=== PATIENT | female | born 1975 | race Caucasian/White ===

== ENCOUNTER 2018-10-15 22:21 | Emergency (ER) | payer MEDICAID ==
[~2018-10-15] VITALS: Ht 165.1 cm; Wt 53.2 kg
[~2018-10-15 22:21] MED LIST: BUSP10TA23 PO; NALT50TA6 PO; QUET100T33 PO
[2018-10-15 22:28] VITALS: BP 131/103
[2018-10-15] MEDS ORDERED: LORA1TAB3 PO (22:33)
== END 2018-10-15 23:52 | disposition left against medical advice (07) ==
LOC: EMS 22:22
DX: F41.9 Anxiety disorder, unspecified (principal); Z76.0 Encounter for issue of repeat prescription; Z53.21 Procedure and treatment not carried out due to patient leaving prior to being seen by health care provider

== ENCOUNTER 2018-11-21 06:15 | Emergency (ER) | payer MEDICAID ==
[~2018-11-21] VITALS: Ht 160 cm; Wt 54.5 kg
[~2018-11-21 06:15] MED LIST changes: +LORA1TAB3 PO; -NALT50TA6 PO
[2018-11-21 09:21] LABS: BASOPHILS % (AUTO) 0.8 % (0.0-2.0); EOSINOPHILS % (AUTO) 1.2 % (1.0-6.0); HEMATOCRIT 36.9 % (36-46); LYMPHOCYTES # (AUTO) 1.1 K/uL (1.0-4.8); LYMPHOCYTES % (AUTO) 18.1 % (22.0-44.0); MEAN CORPUSCULAR HEMOGLOBIN 28.1 pg (26.0-34.0); MEAN CORPUSCULAR HGB CONC 32.5 G/dL (31.0-37.0); MEAN CORPUSCULAR VOLUME 87 fL (80-100); MONOCYTES # (AUTO) 0.5 K/uL (0.1-1.0); MONOCYTES % (AUTO) 7.5 % (2.0-9.0); NEUTROPHILS # (AUTO) 4.6 K/uL (1.8-7.7); NEUTROPHILS % (AUTO) 72.4 % (40.0-70.0); PLATELET COUNT (AUTO) 325 K/uL (150-450); RED BLOOD CELL COUNT(AUTO) 4.26 MIL/uL (4.00-5.20)
[2018-11-21 09:34] LABS: ANION GAP 10 mmol/L (8-16); CALCIUM, TOTAL 8.6 mg/dL (8.8-10.5); CARBON DIOXIDE 25 mmol/L (22-29); CHLORIDE 104 mmol/L (98-107); CREATININE 0.86 mg/dL (0.60-1.30); GLOMERULAR FILTR. RATE CALC > 60 mL/min (>60); GLUCOSE,RANDOM 102 mg/dL (70-110); POTASSIUM 4.1 mmol/L (3.5-5.1); SODIUM SERUM 139 mmol/L (136-145); UREA NITROGEN, BLOOD 11 mg/dL (7-18)
[2018-11-21 09:41] LABS: ALANINE AMINOTRANSFERASE 21 U/L (12-78); ALBUMIN 3.6 g/dL (3.4-5.0); ALKALINE PHOSPHATASE 76 U/L (46-116); ASPARTATE AMINOTRANSFERASE 22 U/L (15-37); BILIRUBIN,TOTAL 0.3 mg/dL (0.1-1.0); TOTAL PROTEIN, SERUM 6.7 g/dL (6.4-8.2)
[2018-11-21 11:04] LABS: APPEARANCE,URINE CLOUDY (CLEAR); BILIRUBIN,URINE NEGATIVE (NEGATIVE); GLUCOSE, URINE (UA) NEGATIVE (NEGATIVE); KETONES,URINE NEGATIVE (NEGATIVE); LEUKOCYTE ESTERASE ,URINE LARGE (NEGATIVE); NITRATE,URINE POSITIVE (NEGATIVE); OCCULT BLOOD,URINE TRACE (NEGATIVE); PH,URINE 6.5 (5.0-8.0); PROTEIN,URINE NEGATIVE (NEGATIVE); UROBILINOGEN,URINE 0.2 mg/dL (<=1.0)
[2018-11-21 11:11] LABS: BACTERIA,URINE Many /HPF (None Seen); WBC,URINE >100 /HPF (0-5)
[2018-11-21] MEDS ORDERED: LORazepam 1 MG TABLET PO ONE (11:15)
[2018-11-21] MEDS ORDERED: QUET200T PO (11:16)
[2018-11-21 14:00] VITALS: BP 126/77
== END 2018-11-21 14:24 | disposition home or self-care (01) ==
LOC: EMS 06:15
DX: F41.9 Anxiety disorder, unspecified (principal)
CPT/HCPCS: 87086

== ENCOUNTER 2018-12-09 00:46 | Inpatient (IN) | payer MEDICAID ==
[~2018-12-09] VITALS: Ht 160 cm; Wt 54.4 kg
[~2018-12-09 00:46] MED LIST changes: +LORA-1000 PO; -LORA1TAB3 PO; -QUET100T33 PO; +QUET200T PO
[2018-12-09 03:32] LABS: AMPHET/METH SCREEN,URINE POSITIVE (NEGATIVE); BARBITURATE SCREEN, URINE NEGATIVE (NEGATIVE); BENZODIAZEPINES SCREEN,URINE NEGATIVE (NEGATIVE); CANNABINOID SCREEN,URINE NEGATIVE (NEGATIVE); COCAINE SCREEN,URINE NEGATIVE (NEGATIVE); METHADONE SCREEN, URINE NEGATIVE (NEGATIVE); OPIATE SCREEN,URINE NEGATIVE (NEGATIVE)
[2018-12-09 03:35] LABS: PHENCYCLIDINE SCREEN,URINE NEGATIVE (NEGATIVE)
[2018-12-09 03:43] LABS: BASOPHILS % (AUTO) 0.7 % (0.0-2.0); EOSINOPHILS % (AUTO) 0.3 % (1.0-6.0); HEMATOCRIT 36.1 % (36-46); HEMOGLOBIN 11.8 g/dL (12.0-16.0); LYMPHOCYTES # (AUTO) 1.2 K/uL (1.0-4.8); LYMPHOCYTES % (AUTO) 10.3 % (22.0-44.0); MEAN CORPUSCULAR HEMOGLOBIN 27.7 pg (26.0-34.0); MEAN CORPUSCULAR HGB CONC 32.7 G/dL (31.0-37.0); MEAN CORPUSCULAR VOLUME 85 fL (80-100); MONOCYTES # (AUTO) 0.7 K/uL (0.1-1.0); MONOCYTES % (AUTO) 5.9 % (2.0-9.0); NEUTROPHILS # (AUTO) 9.5 K/uL (1.8-7.7); NEUTROPHILS % (AUTO) 82.8 % (40.0-70.0); PLATELET COUNT (AUTO) 308 K/uL (150-450); RED BLOOD CELL COUNT(AUTO) 4.26 MIL/uL (4.00-5.20); RED CELL DISTRIBUTION WIDTH 14.9 % (11.5-14.5)
[2018-12-09 03:51] LABS: ANION GAP 7 mmol/L (8-16); CALCIUM, TOTAL 8.4 mg/dL (8.8-10.5); CARBON DIOXIDE 26 mmol/L (22-29); CHLORIDE 101 mmol/L (98-107); CREATININE 0.72 mg/dL (0.60-1.30); GLOMERULAR FILTR. RATE CALC > 60 mL/min (>60); GLUCOSE,RANDOM 115 mg/dL (70-110); POTASSIUM 4.2 mmol/L (3.5-5.1); SODIUM SERUM 134 mmol/L (136-145); UREA NITROGEN, BLOOD 7 mg/dL (7-18)
[2018-12-09 03:52] LABS: INR 0.9 (0.9-1.1); PROTHROMBIN TIME 9.5 SEC (9.4-11.6)
[2018-12-09 04:00] LABS: B-TYPE NATRIURETIC PEPTIDE 11 pg/mL (0-100)
[2018-12-09] MEDS ORDERED: ZOLPIDEM TARTRATE 10 MG TABLET PO PRN (04:00)
[2018-12-09] MEDS ORDERED: HALOPERIDOL 5 MG TABLET PO PRN (04:00)
[2018-12-09 04:15] LABS: ALANINE AMINOTRANSFERASE 12 U/L (12-78); ALBUMIN 3.4 g/dL (3.4-5.0); ALKALINE PHOSPHATASE 77 U/L (46-116); ASPARTATE AMINOTRANSFERASE 15 U/L (15-37); BILIRUBIN,TOTAL 0.2 mg/dL (0.1-1.0); CREATINE KINASE, TOTAL ONLY 77 U/L (26-192); TOTAL PROTEIN, SERUM 6.5 g/dL (6.4-8.2)
[2018-12-09] MEDS ORDERED: SODIUM CHLORIDE 0.9% 1,000 ML IV ONE ×2 (05:45→07:00)
[2018-12-09] MEDS ORDERED: IBUPROFEN 400 MG TABLET PO ONE (05:45)
[2018-12-09] MEDS ORDERED: CefTRIAXone 1 GM/DEXTROSE 50 ML IV ONE (06:00)
[2018-12-09] MEDS ORDERED: DOXYCYCLINE HYCLATE 100 MG CAPSULE PO ONE (06:00)
[2018-12-09 06:05] LABS: APPEARANCE,URINE CLEAR (CLEAR); BILIRUBIN,URINE NEGATIVE (NEGATIVE); GLUCOSE, URINE (UA) NEGATIVE (NEGATIVE); KETONES,URINE NEGATIVE (NEGATIVE); LEUKOCYTE ESTERASE ,URINE NEGATIVE (NEGATIVE); NITRATE,URINE NEGATIVE (NEGATIVE); OCCULT BLOOD,URINE NEGATIVE (NEGATIVE); PH,URINE 6.5 (5.0-8.0); PROTEIN,URINE NEGATIVE (NEGATIVE); UROBILINOGEN,URINE 0.2 mg/dL (<=1.0)
[2018-12-09] MEDS ORDERED: ACETAMINOPHEN 500 MG TABLET PO ONE (06:15)
[2018-12-09 07:18] LABS: LACTIC ACID 2.2 mmol/L (0.4-2.0)
[2018-12-09 07:39] LABS: INFLUENZA TYPE A NEGATIVE FOR TYPE A (NEGATIVE); INFLUENZA TYPE B NEGATIVE FOR TYPE B (NEGATIVE)
[2018-12-09] MEDS ORDERED: 0.9% SODIUM CHLORIDE 10 ML SYRINGE IVP PRN ×2 (08:15→10:00)
[2018-12-09] MEDS ORDERED: ACETAMINOPHEN 325 MG TABLET PO PRN (08:15)
[2018-12-09] MEDS ORDERED: BISACODYL 10 MG RECTAL RECTAL SUPPOSITORY PR PRN (10:00)
[2018-12-09] MEDS ORDERED: ONDANSETRON HCL 4 MG/2 ML VIAL IVP PRN (10:00)
[2018-12-09] MEDS ORDERED: LORazepam 2 MG/ML VIAL IVP PRN (10:00)
[2018-12-09] MEDS ORDERED: MAGNESIUM HYDROXIDE SUSPENSION 30 ML UDCUP PO PRN (10:00)
[2018-12-09] MEDS ORDERED: ALBUTEROL SULFATE 2.5 MG/0.5 ML NEB SOLUTION NEB PRN (10:00)
[2018-12-09] MEDS ORDERED: IPRATROPIUM BROMIDE 0.5 MG/2.5 ML NEB SOLUTION NEB PRN (10:00)
[2018-12-09 10:22] VITALS: BP 104/63
[2018-12-09] MEDS: FAMOTIDINE 20 MG TABLET PO SCH ×2 (13:01→22:22)
[2018-12-09] MEDS: SODIUM CHLORIDE 0.9% 1,000 ML IV SCH ×2 (13:01→22:22)
[2018-12-09] MEDS ORDERED: HYDR-4031 PO (15:12)
[2018-12-09 16:08] VITALS: BP 120/86
[2018-12-09] MEDS: LORazepam 2 MG TABLET PO PRN (17:57)
[2018-12-09 20:19] VITALS: BP 122/77
[2018-12-09] MEDS: DOXYCYCLINE HYCLATE 100 MG CAPSULE PO SCH (20:20)
[2018-12-10] VITALS (7 sets, daily range): BP systolic 111–138; BP diastolic 68–90
[2018-12-10] MEDS: LORazepam 2 MG TABLET PO PRN (05:55)
[2018-12-10 06:41] LABS: BASOPHILS % (AUTO) 0.4 % (0.0-2.0); EOSINOPHILS % (AUTO) 1.3 % (1.0-6.0); HEMATOCRIT 36.4 % (36-46); HEMOGLOBIN 11.8 g/dL (12.0-16.0); LYMPHOCYTES # (AUTO) 1.3 K/uL (1.0-4.8); LYMPHOCYTES % (AUTO) 10.8 % (22.0-44.0); MEAN CORPUSCULAR HEMOGLOBIN 27.8 pg (26.0-34.0); MEAN CORPUSCULAR HGB CONC 32.3 G/dL (31.0-37.0); MEAN CORPUSCULAR VOLUME 86 fL (80-100); MONOCYTES # (AUTO) 0.8 K/uL (0.1-1.0); MONOCYTES % (AUTO) 6.3 % (2.0-9.0); NEUTROPHILS # (AUTO) 9.8 K/uL (1.8-7.7); NEUTROPHILS % (AUTO) 81.2 % (40.0-70.0); PLATELET COUNT (AUTO) 257 K/uL (150-450); RED BLOOD CELL COUNT(AUTO) 4.23 MIL/uL (4.00-5.20); RED CELL DISTRIBUTION WIDTH 15.3 % (11.5-14.5)
[2018-12-10 07:05] LABS: ALANINE AMINOTRANSFERASE 16 U/L (12-78); ALKALINE PHOSPHATASE 71 U/L (46-116); ANION GAP 10 mmol/L (8-16); ASPARTATE AMINOTRANSFERASE 21 U/L (15-37); BILIRUBIN,TOTAL 0.2 mg/dL (0.1-1.0); CALCIUM, TOTAL 8.2 mg/dL (8.8-10.5); CARBON DIOXIDE 21 mmol/L (22-29); CHLORIDE 101 mmol/L (98-107); CHOL/HDL RATIO 1.7 (3.9-5.7); CHOLESTEROL 118 mg/dL (131-200); CREATININE 0.54 mg/dL (0.60-1.30); GLOMERULAR FILTR. RATE CALC > 60 mL/min (>60); GLUCOSE,RANDOM 108 mg/dL (70-110); HDL CHOLESTEROL 70 mg/dL (40-60); LDL CHOL (CALC.) 41 mg/dL (0-130); POTASSIUM 4.2 mmol/L (3.5-5.1); SODIUM SERUM 132 mmol/L (136-145); TRIGLYCERIDES 34 mg/dL (15-150)
[2018-12-10 07:12] LABS: UREA NITROGEN, BLOOD 5 mg/dL (7-18)
[2018-12-10] MEDS: DOXYCYCLINE HYCLATE 100 MG CAPSULE PO SCH ×2 (08:01→21:08)
[2018-12-10] MEDS: SODIUM CHLORIDE 0.9% 1,000 ML IV SCH ×2 (08:01→16:29)
[2018-12-10] MEDS: CefTRIAXone 1 GM/DEXTROSE 50 ML IV SCH (08:07)
[2018-12-10] MEDS: FAMOTIDINE 20 MG TABLET PO SCH ×2 (10:30→21:08)
[2018-12-10] MEDS: GuaiFENesin/D-METHORPHAN [SUGAR-FREE] 200-20MG/10 ML SYRUP UDCUP PO PRN (21:08)
[2018-12-10] MEDS: ACETAMINOPHEN 325 MG TABLET PO PRN (21:08)
[2018-12-11] MEDS: SODIUM CHLORIDE 0.9% 1,000 ML IV SCH ×2 (02:24→10:58)
[2018-12-11] MEDS: ACETAMINOPHEN 325 MG TABLET PO PRN (05:54)
[2018-12-11 05:58] VITALS: BP 123/86
[2018-12-11 07:34] VITALS: BP 109/74
[2018-12-11] MEDS: FAMOTIDINE 20 MG TABLET PO SCH (08:48)
[2018-12-11] MEDS: GuaiFENesin/D-METHORPHAN [SUGAR-FREE] 200-20MG/10 ML SYRUP UDCUP PO PRN (08:48)
[2018-12-11] MEDS: CefTRIAXone 1 GM/DEXTROSE 50 ML IV SCH (08:48)
[2018-12-11] MEDS: DOXYCYCLINE HYCLATE 100 MG CAPSULE PO SCH (08:48)
[2018-12-11] MEDS: LORazepam 2 MG TABLET PO PRN (08:53)
[2018-12-11 12:01] VITALS: BP 104/72
[2018-12-11 15:14] VITALS: BP 117/77
[2018-12-11] MEDS ORDERED: DOXY150T5 PO (16:47)
[2018-12-11] MEDS ORDERED: DOXY100C PO (16:52)
[2018-12-11] MEDS ORDERED: ALBU8HFA IH (16:53)
== END 2018-12-11 17:05 | disposition home or self-care (01) | DRG 145 ==
LOC: EMS 00:46 → 5S 08:35
PROVIDERS: ADMIT Internal Medicine; ATTEND Internal Medicine
DX: J20.9 Acute bronchitis, unspecified (principal); E87.2 Acidosis; R45.851 Suicidal ideations; R65.10 Systemic inflammatory response syndrome (SIRS) of non-infectious origin without acute organ dysfunction; F25.9 Schizoaffective disorder, unspecified; F31.9 Bipolar disorder, unspecified; F17.210 Nicotine dependence, cigarettes, uncomplicated; F12.90 Cannabis use, unspecified, uncomplicated; F15.10 Other stimulant abuse, uncomplicated; F19.129 Other psychoactive substance abuse with intoxication, unspecified
CPT/HCPCS: 83605; 84145; 87040; 87070; 87205; 87804; 93005; G0480; J0696; J7030

== ENCOUNTER 2018-12-12 15:50 | Emergency (ER) | payer MEDICAID ==
[~2018-12-12] VITALS: Ht 165.1 cm; Wt 59.1 kg
[~2018-12-12 15:50] MED LIST changes: +ALBU8HFA IH; -BUSP10TA23 PO; +DOXY150T5 PO; +HYDR-4031 PO
[2018-12-12 16:01] VITALS: BP 113/75
== END 2018-12-12 18:12 | disposition left against medical advice (07) ==
LOC: EMS 15:51
DX: Z76.0 Encounter for issue of repeat prescription (principal); Z53.21 Procedure and treatment not carried out due to patient leaving prior to being seen by health care provider

== ENCOUNTER 2018-12-15 21:24 | Emergency (ER) | payer MEDICAID ==
[~2018-12-15] VITALS: Ht 165.1 cm; Wt 59.1 kg
[~2018-12-15 21:24] MED LIST changes: -LORA-1000 PO; +LORA1TAB3 PO
[2018-12-15 23:43] VITALS: BP 124/83
[2018-12-16] MEDS ORDERED: HydrOXYzine PAMOATE 25 MG CAPSULE PO ONE
== END 2018-12-16 00:15 | disposition home or self-care (01) ==
LOC: EMS 21:25
DX: F41.9 Anxiety disorder, unspecified (principal); F15.90 Other stimulant use, unspecified, uncomplicated; F12.90 Cannabis use, unspecified, uncomplicated; F17.210 Nicotine dependence, cigarettes, uncomplicated; Z76.0 Encounter for issue of repeat prescription; Z79.899 Other long term (current) drug therapy

== ENCOUNTER 2019-07-11 09:46 | Emergency (ER) | payer MEDICAID ==
[~2019-07-11] VITALS: Ht 157.5 cm; Wt 54.5 kg
[~2019-07-11 09:46] MED LIST changes: +LORA-1000 PO; -LORA1TAB3 PO
[2019-07-11] MEDS ORDERED: DIVA125T2 PO (10:23)
[2019-07-11 11:55] LABS: APPEARANCE,URINE CLOUDY (CLEAR); BILIRUBIN,URINE NEGATIVE (NEGATIVE); GLUCOSE, URINE (UA) NEGATIVE (NEGATIVE); KETONES,URINE TRACE mg/dL (NEGATIVE); LEUKOCYTE ESTERASE ,URINE SMALL (NEGATIVE); NITRATE,URINE POSITIVE (NEGATIVE); OCCULT BLOOD,URINE NEGATIVE (NEGATIVE); PROTEIN,URINE NEGATIVE (NEGATIVE)
[2019-07-11 12:02] LABS: BACTERIA,URINE Many /HPF (None Seen); RBC,URINE 0-2 /HPF (0-2); SQUAMOUS EPITHELIAL CELL,UR Few /LPF (None Seen); YEAST,URINE None Seen /HPF (None Seen)
[2019-07-11] MEDS ORDERED: SULFAMETHOX/TRIMETH DS 800-160 MG/TABLET PO ONE (12:15)
[2019-07-11] MEDS ORDERED: PHENAZOPYRIDINE HCL 100 MG TABLET PO ONE (12:15)
[2019-07-11 12:25] VITALS: BP 117/83
== END 2019-07-11 12:25 | disposition home or self-care (01) ==
LOC: EMS 09:55
DX: N39.0 Urinary tract infection, site not specified (principal); F15.10 Other stimulant abuse, uncomplicated; F12.90 Cannabis use, unspecified, uncomplicated; F17.210 Nicotine dependence, cigarettes, uncomplicated; Z79.899 Other long term (current) drug therapy
CPT/HCPCS: 87086

== ENCOUNTER 2019-12-31 14:21 | Emergency (ER) | payer MEDICAID ==
[~2019-12-31] VITALS: Ht 160 cm; Wt 53.6 kg
[~2019-12-31 14:21] MED LIST changes: -ALBU8HFA IH; +DIVA125T2 PO; -DOXY150T5 PO
[2019-12-31] MEDS ORDERED: BUSP5TAB20 PO (14:29)
[2019-12-31 15:48] LABS: BASOPHILS % (AUTO) 0.8 % (0.0-2.0); EOSINOPHILS % (AUTO) 5.1 % (1.0-6.0); HEMATOCRIT 40.3 % (36-46); HEMOGLOBIN 13.2 g/dL (12.0-16.0); LYMPHOCYTES # (AUTO) 1.4 K/uL (1.0-4.8); MEAN CORPUSCULAR HEMOGLOBIN 29.3 pg (26.0-34.0); MEAN CORPUSCULAR HGB CONC 32.8 G/dL (31.0-37.0); MEAN CORPUSCULAR VOLUME 89 fL (80-100); MONOCYTES # (AUTO) 0.4 K/uL (0.1-1.0); MONOCYTES % (AUTO) 11.1 % (2.0-9.0); NEUTROPHILS # (AUTO) 1.9 K/uL (1.8-7.7); PLATELET COUNT (AUTO) 289 K/uL (150-450); RED BLOOD CELL COUNT(AUTO) 4.51 MIL/uL (4.00-5.20); RED CELL DISTRIBUTION WIDTH 13.5 % (11.5-14.5)
[2019-12-31 16:01] LABS: ANION GAP 9 mmol/L (8-16); CALCIUM, TOTAL 8.6 mg/dL (8.8-10.5); CARBON DIOXIDE 27 mmol/L (22-29); CHLORIDE 103 mmol/L (98-107); CREATININE 0.82 mg/dL (0.60-1.30); GLOMERULAR FILTR. RATE CALC > 60 mL/min (>60); GLUCOSE,RANDOM 81 mg/dL (70-110); POTASSIUM 3.8 mmol/L (3.5-5.1); SODIUM SERUM 139 mmol/L (136-145); UREA NITROGEN, BLOOD 12 mg/dL (7-18)
[2019-12-31 16:07] LABS: ALANINE AMINOTRANSFERASE 17 U/L (12-78); ALBUMIN 3.4 g/dL (3.4-5.0); ALKALINE PHOSPHATASE 71 U/L (46-116); ASPARTATE AMINOTRANSFERASE 16 U/L (15-37); BILIRUBIN,TOTAL 0.2 mg/dL (0.1-1.0); TOTAL PROTEIN, SERUM 6.2 g/dL (6.4-8.2)
[2019-12-31 16:11] VITALS: BP 110/70
== END 2019-12-31 16:14 | disposition home or self-care (01) ==
LOC: EMS 14:21
DX: F41.9 Anxiety disorder, unspecified (principal); M79.10 Myalgia, unspecified site; F17.210 Nicotine dependence, cigarettes, uncomplicated; F12.90 Cannabis use, unspecified, uncomplicated
CPT/HCPCS: 36415; 80053; 85025; 99283; G0480

== ENCOUNTER 2020-01-31 09:05 | Emergency (ER) | payer MEDICAID ==
[~2020-01-31] VITALS: Ht 165.1 cm; Wt 54.5 kg
[~2020-01-31 09:05] MED LIST changes: +BUSP5TAB20 PO
[2020-01-31 09:15] VITALS: BP 129/82
[2020-01-31 10:11] LABS: BASOPHILS % (AUTO) 1.2 % (0.0-2.0); EOSINOPHILS % (AUTO) 2.4 % (1.0-6.0); HEMATOCRIT 38.2 % (36-46); HEMOGLOBIN 12.9 g/dL (12.0-16.0); LYMPHOCYTES # (AUTO) 1.5 K/uL (1.0-4.8); LYMPHOCYTES % (AUTO) 25.7 % (22.0-44.0); MEAN CORPUSCULAR HEMOGLOBIN 30.1 pg (26.0-34.0); MEAN CORPUSCULAR HGB CONC 33.7 G/dL (31.0-37.0); MEAN CORPUSCULAR VOLUME 89 fL (80-100); MONOCYTES # (AUTO) 0.5 K/uL (0.1-1.0); MONOCYTES % (AUTO) 9.1 % (2.0-9.0); NEUTROPHILS # (AUTO) 3.5 K/uL (1.8-7.7); NEUTROPHILS % (AUTO) 61.6 % (40.0-70.0); PLATELET COUNT (AUTO) 280 K/uL (150-450); RED BLOOD CELL COUNT(AUTO) 4.28 MIL/uL (4.00-5.20); RED CELL DISTRIBUTION WIDTH 14.3 % (11.5-14.5)
[2020-01-31 10:23] LABS: ANION GAP 11 mmol/L (8-16); CALCIUM, TOTAL 8.8 mg/dL (8.8-10.5); CARBON DIOXIDE 25 mmol/L (22-29); CHLORIDE 104 mmol/L (98-107); CREATININE 0.62 mg/dL (0.60-1.30); GLOMERULAR FILTR. RATE CALC > 60 mL/min (>60); GLUCOSE,RANDOM 85 mg/dL (70-110); POTASSIUM 3.8 mmol/L (3.5-5.1); SODIUM SERUM 140 mmol/L (136-145); UREA NITROGEN, BLOOD 19 mg/dL (7-18)
[2020-01-31 10:35] LABS: ALANINE AMINOTRANSFERASE 27 U/L (12-78); ALBUMIN 3.6 g/dL (3.4-5.0); ALKALINE PHOSPHATASE 80 U/L (46-116); ASPARTATE AMINOTRANSFERASE 31 U/L (15-37); BILIRUBIN,TOTAL 0.4 mg/dL (0.1-1.0); HCG,QUANTITATIVE 1 mIU/mL (0-6); TOTAL PROTEIN, SERUM 7.3 g/dL (6.4-8.2)
[2020-01-31 10:51] LABS: AMPHET/METH SCREEN,URINE POSITIVE (NEGATIVE); BARBITURATE SCREEN, URINE NEGATIVE (NEGATIVE); BENZODIAZEPINES SCREEN,URINE NEGATIVE (NEGATIVE); CANNABINOID SCREEN,URINE NEGATIVE (NEGATIVE); COCAINE SCREEN,URINE NEGATIVE (NEGATIVE); METHADONE SCREEN, URINE NEGATIVE (NEGATIVE); OPIATE SCREEN,URINE NEGATIVE (NEGATIVE)
[2020-01-31 10:52] LABS: PHENCYCLIDINE SCREEN,URINE NEGATIVE (NEGATIVE)
[2020-01-31] MEDS ORDERED: LORazepam 1 MG TABLET PO ONE (11:15)
== END 2020-01-31 12:00 | disposition home or self-care (01) ==
LOC: EMS 09:05
DX: F41.9 Anxiety disorder, unspecified (principal); F15.90 Other stimulant use, unspecified, uncomplicated; G47.00 Insomnia, unspecified; F17.210 Nicotine dependence, cigarettes, uncomplicated; F12.90 Cannabis use, unspecified, uncomplicated; F31.9 Bipolar disorder, unspecified
CPT/HCPCS: 36415; 80053; 80307; 84702; 85025; 99283; 99406; G0480

== ENCOUNTER 2020-03-02 15:31 | Emergency (ER) | payer MEDICAID ==
[~2020-03-02] VITALS: Ht 165.1 cm; Wt 54.5 kg
[2020-03-02] MEDS ORDERED: HydrOXYzine PAMOATE 25 MG CAPSULE PO ONE (17:15)
[2020-03-02] MEDS ORDERED: QUEtiapine FUMARATE 100 MG TABLET PO ONE (17:15)
[2020-03-02 18:43] VITALS: BP 125/68
== END 2020-03-02 18:45 | disposition home or self-care (01) ==
LOC: EMS 15:31
DX: F41.9 Anxiety disorder, unspecified (principal); F17.210 Nicotine dependence, cigarettes, uncomplicated; F12.90 Cannabis use, unspecified, uncomplicated; F19.90 Other psychoactive substance use, unspecified, uncomplicated; Z76.0 Encounter for issue of repeat prescription

== ENCOUNTER 2020-10-03 15:20 | Emergency (ER) | payer MEDICAID ==
[~2020-10-03] VITALS: Ht 162.6 cm; Wt 59.1 kg
[2020-10-03 16:22] VITALS: BP 128/71
[2020-10-03 16:55] LABS: BASOPHILS % (AUTO) 0.3 % (0.0-2.0); EOSINOPHILS % (AUTO) 0.5 % (1.0-6.0); HEMATOCRIT 34.9 % (36-46); HEMOGLOBIN 11.1 g/dL (12.0-16.0); LYMPHOCYTES # (AUTO) 1.4 K/uL (1.0-4.8); LYMPHOCYTES % (AUTO) 11.8 % (22.0-44.0); MEAN CORPUSCULAR HEMOGLOBIN 27.4 pg (26.0-34.0); MEAN CORPUSCULAR HGB CONC 31.9 G/dL (31.0-37.0); MEAN CORPUSCULAR VOLUME 86 fL (80-100); MONOCYTES # (AUTO) 0.6 K/uL (0.1-1.0); MONOCYTES % (AUTO) 5.3 % (2.0-9.0); NEUTROPHILS # (AUTO) 9.4 K/uL (1.8-7.7); NEUTROPHILS % (AUTO) 82.1 % (40.0-70.0); PLATELET COUNT (AUTO) 420 K/uL (150-450); RED BLOOD CELL COUNT(AUTO) 4.06 MIL/uL (4.00-5.20); RED CELL DISTRIBUTION WIDTH 16.6 % (11.5-14.5)
== END 2020-10-03 17:44 | disposition home or self-care (01) ==
LOC: EMS 15:21
DX: L02.416 Cutaneous abscess of left lower limb (principal); F25.9 Schizoaffective disorder, unspecified; F17.210 Nicotine dependence, cigarettes, uncomplicated; F15.90 Other stimulant use, unspecified, uncomplicated; F12.90 Cannabis use, unspecified, uncomplicated; Z79.899 Other long term (current) drug therapy
CPT/HCPCS: 84702; 85025; 99283

== ENCOUNTER 2022-10-11 01:34 | Emergency (ER) | payer MEDICAID ==
[~2022-10-11] VITALS: Ht 165.1 cm; Wt 54.5 kg
[~2022-10-11 01:34] MED LIST changes: -HYDR-4031 PO; +HYDR-4808 PO
[2022-10-11 01:55] VITALS: TEMP 98.2
[2022-10-11 03:09] VITALS: BP 112/90; PULSE 114; RESP 18
[2022-10-11] MEDS ORDERED: QUET200T PO (03:13)
== END 2022-10-11 03:18 | disposition home or self-care (01) ==
LOC: EMS 01:35
DX: Z76.0 Encounter for issue of repeat prescription (principal); F41.9 Anxiety disorder, unspecified; F31.9 Bipolar disorder, unspecified; E78.00 Pure hypercholesterolemia, unspecified; F20.9 Schizophrenia, unspecified; F17.210 Nicotine dependence, cigarettes, uncomplicated; F15.90 Other stimulant use, unspecified, uncomplicated; F12.90 Cannabis use, unspecified, uncomplicated
CPT/HCPCS: 99281; Z7502

== ENCOUNTER 2023-01-15 18:50 | Inpatient (IN) | payer MEDICAID ==
[~2023-01-15] VITALS: Ht 165.1 cm; Wt 53.5 kg
[~2023-01-15 18:50] MED LIST changes: -DIVA125T2 PO; -LORA-1000 PO
[2023-01-15 19:08] LABS: COVID AG,FIA SOURCE NASAL SWAB
[2023-01-15] MEDS ORDERED: QUET300T19 PO (19:11)
[2023-01-15] MEDS ORDERED: QUET100T34 PO (19:11)
[2023-01-15] MEDS ORDERED: BUSP10TA3 PO (19:11)
[2023-01-15] MEDS ORDERED: HYDR-4527 PO (19:11)
[2023-01-15 19:29] LABS: SARS-COV2 (COVID) ANTIGEN,FIA Negative (Negative)
[2023-01-15 19:32] LABS: INFLUENZA TYPE A NEGATIVE FOR TYPE A (NEGATIVE); INFLUENZA TYPE B NEGATIVE FOR TYPE B (NEGATIVE)
[2023-01-15 21:34] LABS: BASOPHILS % (AUTO) 0.4 % (0.0-2.0); EOSINOPHILS % (AUTO) 0.5 % (1.0-6.0); HEMATOCRIT 35.1 % (36-46); HEMOGLOBIN 11.8 g/dL (12.0-16.0); LYMPHOCYTES # (AUTO) 0.5 K/uL (1.0-4.8); LYMPHOCYTES % (AUTO) 9.5 % (22.0-44.0); MEAN CORPUSCULAR HEMOGLOBIN 29.9 pg (26.0-34.0); MEAN CORPUSCULAR HGB CONC 33.5 G/dL (31.0-37.0); MEAN CORPUSCULAR VOLUME 89 fL (80-100); MONOCYTES # (AUTO) 0.3 K/uL (0.1-1.0); MONOCYTES % (AUTO) 6.5 % (2.0-9.0); NEUTROPHILS # (AUTO) 4.1 K/uL (1.8-7.7); NEUTROPHILS % (AUTO) 83.1 % (40.0-70.0); PLATELET COUNT (AUTO) 234 K/uL (150-450); RED BLOOD CELL COUNT(AUTO) 3.94 MIL/uL (4.00-5.20); RED CELL DISTRIBUTION WIDTH 13.9 % (11.5-14.5)
[2023-01-15 21:42] LABS: ANION GAP 11 mmol/L (8-16); CALCIUM, TOTAL 7.8 mg/dL (8.8-10.5); CARBON DIOXIDE 22 mmol/L (22-29); CHLORIDE 97 mmol/L (98-107); CREATININE 0.64 mg/dL (0.60-1.30); GLOMERULAR FILTR. RATE CALC > 60 mL/min (>60); GLUCOSE,RANDOM 114 mg/dL (70-110); POTASSIUM 3.4 mmol/L (3.5-5.1); SODIUM SERUM 130 mmol/L (136-145); UREA NITROGEN, BLOOD 8 mg/dL (7-18)
[2023-01-15 21:48] LABS: ALCOHOL, BLOOD (SERUM) < 3 mg/dL (0-10)
[2023-01-15 21:50] LABS: ALANINE AMINOTRANSFERASE 19 U/L (12-78); ALKALINE PHOSPHATASE 76 U/L (46-116); ASPARTATE AMINOTRANSFERASE 18 U/L (15-37); BILIRUBIN,TOTAL 0.2 mg/dL (0.1-1.0); TOTAL PROTEIN, SERUM 6.5 g/dL (6.4-8.2)
[2023-01-15] MEDS ORDERED: DIPHENOXYLATE/ATROP 2.5-0.025 MG TABLET PO ONE (22:30)
[2023-01-15] MEDS ORDERED: ACETAMINOPHEN 500 MG TABLET PO ONE (22:30)
[2023-01-15] MEDS ORDERED: ONDANSETRON HCL 4 MG TABLET PO ONE (22:30)
[2023-01-15] MEDS ORDERED: HALOPERIDOL 5 MG TABLET PO PRN (23:45)
[2023-01-15] MEDS ORDERED: ZOLPIDEM TARTRATE 10 MG TABLET PO PRN (23:45)
[2023-01-16] MEDS ORDERED: POTASSIUM CHLORIDE 10% 40 MEQ/30 ML LIQUID UDCUP PO ONE (01:30)
[2023-01-16 02:09] LABS: APPEARANCE,URINE CLEAR (CLEAR); BILIRUBIN,URINE NEGATIVE (NEGATIVE); COLOR,URINE LIGHT YELLOW (YELLOW); GLUCOSE, URINE (UA) NEGATIVE (NEGATIVE); KETONES,URINE NEGATIVE (NEGATIVE); LEUKOCYTE ESTERASE ,URINE NEGATIVE (NEGATIVE); NITRATE,URINE NEGATIVE (NEGATIVE); OCCULT BLOOD,URINE NEGATIVE (NEGATIVE); PROTEIN,URINE NEGATIVE (NEGATIVE); SPECIFIC GRAVITIY, URINE 1.009 (1.003-1.030); UROBILINOGEN,URINE <=1.0 mg/dL (<=1.0)
[2023-01-16 02:15] LABS: ALCOHOL, URINE DRUG SCREEN NEGATIVE (NEGATIVE); AMPHET/METH SCREEN,URINE POSITIVE (NEGATIVE); BARBITURATE SCREEN, URINE NEGATIVE (NEGATIVE); BENZODIAZEPINES SCREEN,URINE POSITIVE (NEGATIVE); CANNABINOID SCREEN,URINE NEGATIVE (NEGATIVE); COCAINE SCREEN,URINE NEGATIVE (NEGATIVE); METHADONE SCREEN, URINE NEGATIVE (NEGATIVE); OPIATE SCREEN,URINE NEGATIVE (NEGATIVE); PHENCYCLIDINE SCREEN,URINE NEGATIVE (NEGATIVE)
[2023-01-16] MEDS: LORazepam 2 MG TABLET PO PRN (20:29)
[2023-01-16 21:14] VITALS: BP 107/74; PULSE 92; RESP 19; TEMP 97.6; O2SAT 95
[2023-01-17 08:40] VITALS: BP 113/83; PULSE 72; RESP 17; TEMP 97.7; O2SAT 99
[2023-01-17 08:51] LABS: ALANINE AMINOTRANSFERASE 38 U/L (12-78); ALBUMIN 2.8 g/dL (3.4-5.0); ALKALINE PHOSPHATASE 91 U/L (46-116); ANION GAP 6 mmol/L (8-16); ASPARTATE AMINOTRANSFERASE 29 U/L (15-37); BILIRUBIN,TOTAL 0.2 mg/dL (0.1-1.0); CALCIUM, TOTAL 8.4 mg/dL (8.8-10.5); CARBON DIOXIDE 27 mmol/L (22-29); CHLORIDE 98 mmol/L (98-107); CREATININE 0.57 mg/dL (0.60-1.30); GLOMERULAR FILTR. RATE CALC > 60 mL/min (>60); GLUCOSE,RANDOM 88 mg/dL (70-110); SODIUM SERUM 131 mmol/L (136-145); TOTAL PROTEIN, SERUM 6.2 g/dL (6.4-8.2); UREA NITROGEN, BLOOD 7 mg/dL (7-18)
[2023-01-17] MEDS: QUEtiapine FUMARATE 100 MG TABLET PO SCH ×2 (11:16→17:14)
[2023-01-17] MEDS: BusPIRone HCL 10 MG TABLET PO SCH ×2 (11:16→17:14)
[2023-01-17 20:08] VITALS: BP 104/51; PULSE 88; RESP 18; TEMP 98.2; O2SAT 97
[2023-01-17] MEDS: QUEtiapine FUMARATE 300 MG TABLET PO SCH (20:26)
[2023-01-18 04:58] VITALS: BP 103/77; PULSE 99; RESP 18; TEMP 97.5; O2SAT 99
[2023-01-18] MEDS: LORazepam 2 MG TABLET PO PRN (04:58)
[2023-01-18] MEDS ORDERED: ONDANSETRON HCL 4 MG TABLET PO PRN (06:30)
[2023-01-18] MEDS ORDERED: NICOTINE 14 MG/24 HOUR PATCH TD PRN (06:30)
[2023-01-18] MEDS ORDERED: LOPERAMIDE HCL 2 MG CAPSULE PO PRN (06:30)
[2023-01-18] MEDS ORDERED: GuaiFENesin/D-METHORPHAN [SUGAR-FREE] 200-20MG/10 ML SYRUP UDCUP PO PRN (06:30)
[2023-01-18] MEDS ORDERED: MAG HYDROX/ALUMINUM HYD/SIMETH ES 30 ML SUSPENSION UDCUP PO PRN (06:30)
[2023-01-18] MEDS ORDERED: ACETAMINOPHEN 325 MG TABLET PO PRN (06:30)
[2023-01-18] MEDS ORDERED: CloNIDine HCL 0.1 MG TABLET PO PRN (06:30)
[2023-01-18] MEDS ORDERED: ALBUTEROL SULFATE HFA 90 MCG/PUFF 8 GM INHALER IH PRN (06:30)
[2023-01-18] MEDS ORDERED: IBUPROFEN 400 MG TABLET PO PRN (06:30)
[2023-01-18] MEDS ORDERED: DOCUSATE SODIUM 100 MG CAPSULE PO PRN (06:30)
[2023-01-18] MEDS ORDERED: PETROLATUM,WHITE 28 GM JELLY TP PRN (06:30)
[2023-01-18] MEDS ORDERED: MAGNESIUM HYDROXIDE SUSPENSION 30 ML UDCUP PO PRN (06:30)
[2023-01-18 08:34] VITALS: BP 103/73; PULSE 80; RESP 17; TEMP 97.5; O2SAT 96
[2023-01-18] MEDS: QUEtiapine FUMARATE 100 MG TABLET PO SCH ×2 (09:08→16:51)
[2023-01-18] MEDS: BusPIRone HCL 10 MG TABLET PO SCH ×2 (09:08→16:50)
[2023-01-18 20:10] VITALS: RESP 18; TEMP 97.8
[2023-01-18] MEDS: QUEtiapine FUMARATE 300 MG TABLET PO SCH (20:18)
[2023-01-19 07:58] LABS: HEMOGLOBIN A1C 5.5 % (3.8-5.6)
[2023-01-19 08:18] LABS: CHOL/HDL RATIO 1.9 (3.9-5.7); THYROID STIMULATING HORMONE 1.89 uIU/mL (0.36-3.74)
[2023-01-19 08:39] VITALS: BP 114/63; PULSE 97; RESP 19; TEMP 98.2; O2SAT 95
[2023-01-19] MEDS: QUEtiapine FUMARATE 100 MG TABLET PO SCH ×2 (08:46→15:58)
[2023-01-19] MEDS: BusPIRone HCL 10 MG TABLET PO SCH ×2 (08:46→15:58)
[2023-01-19] MEDS: LORazepam 2 MG TABLET PO PRN (15:26)
[2023-01-19] MEDS: QUEtiapine FUMARATE 300 MG TABLET PO SCH (20:40)
[2023-01-19 20:48] VITALS: RESP 18
[2023-01-20] MEDS: LORazepam 2 MG TABLET PO PRN (06:40)
[2023-01-20 08:40] VITALS: BP 106/68; PULSE 91; RESP 16; TEMP 98.3
[2023-01-20] MEDS: QUEtiapine FUMARATE 100 MG TABLET PO SCH ×2 (09:43→16:33)
[2023-01-20] MEDS: BusPIRone HCL 10 MG TABLET PO SCH ×2 (09:43→16:34)
[2023-01-20] MEDS: OLANZapine 5 MG RAPDIS TABLET PO PRN (16:33)
[2023-01-20 20:18] VITALS: BP 100/72; PULSE 105; RESP 18; TEMP 97.6; O2SAT 97
[2023-01-20] MEDS: QUEtiapine FUMARATE 300 MG TABLET PO SCH (21:34)
[2023-01-21 08:18] VITALS: BP 107/59; PULSE 92; RESP 19; TEMP 97.7; O2SAT 98
[2023-01-21] MEDS: QUEtiapine FUMARATE 100 MG TABLET PO SCH ×2 (08:51→16:29)
[2023-01-21] MEDS: BusPIRone HCL 10 MG TABLET PO SCH ×2 (08:51→16:29)
[2023-01-21] MEDS: OLANZapine 5 MG RAPDIS TABLET PO PRN ×2 (08:58→15:07)
[2023-01-21] MEDS: QUEtiapine FUMARATE 300 MG TABLET PO SCH (20:47)
[2023-01-21 23:24] VITALS: BP 128/62; PULSE 82; RESP 18; TEMP 98.2; O2SAT 98
[2023-01-22 08:15] VITALS: BP 96/58; PULSE 90; RESP 17; TEMP 98.1; O2SAT 98
[2023-01-22] MEDS: BusPIRone HCL 10 MG TABLET PO SCH ×2 (08:57→16:45)
[2023-01-22] MEDS: QUEtiapine FUMARATE 100 MG TABLET PO SCH ×2 (08:57→16:45)
[2023-01-22] MEDS: OLANZapine 5 MG RAPDIS TABLET PO PRN (10:54)
[2023-01-22] MEDS: QUEtiapine FUMARATE 300 MG TABLET PO SCH (20:12)
[2023-01-22 20:28] VITALS: BP 110/81; PULSE 95; RESP 18; TEMP 98.2; O2SAT 98
[2023-01-23 03:51] VITALS: BP 115/64; PULSE 94; RESP 17; TEMP 98; O2SAT 96
[2023-01-23] MEDS: OLANZapine 5 MG RAPDIS TABLET PO PRN ×3 (03:54→23:45)
[2023-01-23 08:02] VITALS: BP 103/66; PULSE 83; RESP 16; TEMP 97.4; O2SAT 100
[2023-01-23] MEDS: QUEtiapine FUMARATE 100 MG TABLET PO SCH ×2 (08:06→16:00)
[2023-01-23] MEDS: BusPIRone HCL 10 MG TABLET PO SCH ×2 (08:06→16:00)
[2023-01-23] MEDS: QUEtiapine FUMARATE 300 MG TABLET PO SCH (20:02)
[2023-01-23 20:13] VITALS: BP 103/76; PULSE 71; RESP 17; TEMP 98; O2SAT 96
[2023-01-24] MEDS: BusPIRone HCL 10 MG TABLET PO SCH ×2 (08:26→16:39)
[2023-01-24] MEDS: QUEtiapine FUMARATE 100 MG TABLET PO SCH ×2 (08:27→16:39)
[2023-01-24 08:55] VITALS: BP 89/61; PULSE 80; RESP 16; TEMP 97.9; O2SAT 98
[2023-01-24] MEDS: OLANZapine 5 MG RAPDIS TABLET PO PRN (10:01)
[2023-01-24] MEDS ORDERED: HydrOXYzine PAMOATE 25 MG CAPSULE PO PRN (10:15)
[2023-01-24 14:48] VITALS: BP 107/75; PULSE 97; RESP 18; TEMP 97.4; O2SAT 98
[2023-01-24 20:03] VITALS: BP 95/70; PULSE 66; RESP 18; TEMP 97.5; O2SAT 97
[2023-01-24] MEDS: QUEtiapine FUMARATE 300 MG TABLET PO SCH (21:38)
[2023-01-25] MEDS: OLANZapine 5 MG RAPDIS TABLET PO PRN (00:01)
[2023-01-25] MEDS ORDERED: BUSP10TA23 PO (05:37)
[2023-01-25] MEDS ORDERED: QUET300T19 PO (05:37)
[2023-01-25] MEDS ORDERED: QUET100T34 PO (05:37)
== END 2023-01-25 12:00 | disposition home or self-care (01) | DRG 753 ==
LOC: EMS 18:54 → B2S 01-16 16:22
PROVIDERS: ADMIT Psychiatry & Neurology Psychiatry; ATTEND Psychiatry & Neurology Psychiatry
DX: F31.4 Bipolar disorder, current episode depressed, severe, without psychotic features (principal); E87.1 Hypo-osmolality and hyponatremia; R45.851 Suicidal ideations; D64.9 Anemia, unspecified; E87.6 Hypokalemia; F15.10 Other stimulant abuse, uncomplicated; E78.00 Pure hypercholesterolemia, unspecified; F17.210 Nicotine dependence, cigarettes, uncomplicated; Z20.822 Contact with and (suspected) exposure to COVID-19; F41.9 Anxiety disorder, unspecified; K52.9 Noninfective gastroenteritis and colitis, unspecified; F20.9 Schizophrenia, unspecified; Z79.899 Other long term (current) drug therapy; Z59.00 Homelessness unspecified; Z87.440 Personal history of urinary (tract) infections; Z88.8 Allergy status to other drugs, medicaments and biological substances
CPT/HCPCS: 80053; 80061; 80307; 81003; 83036; 84443; 84703; 85025; 87081; 87804; 99285; G0480; Q0162

== ENCOUNTER 2023-02-10 04:32 | Emergency (ER) | payer MEDICAID ==
[~2023-02-10] VITALS: Ht 162.6 cm; Wt 51.0 kg
[~2023-02-10 04:32] MED LIST changes: +BUSP10TA23 PO; -BUSP5TAB20 PO; -HYDR-4808 PO; +QUET100T34 PO; -QUET200T PO; +QUET300T19 PO
[2023-02-10 04:34] VITALS: TEMP 98.4
[2023-02-10 06:52] LABS: BASOPHILS % (AUTO) 0.5 % (0.0-2.0); EOSINOPHILS % (AUTO) 1.8 % (1.0-6.0); HEMATOCRIT 37.2 % (36-46); HEMOGLOBIN 12.2 g/dL (12.0-16.0); LYMPHOCYTES # (AUTO) 1.1 K/uL (1.0-4.8); LYMPHOCYTES % (AUTO) 22.7 % (22.0-44.0); MEAN CORPUSCULAR HEMOGLOBIN 29.4 pg (26.0-34.0); MEAN CORPUSCULAR HGB CONC 32.8 G/dL (31.0-37.0); MEAN CORPUSCULAR VOLUME 90 fL (80-100); MONOCYTES # (AUTO) 0.3 K/uL (0.1-1.0); MONOCYTES % (AUTO) 6.2 % (2.0-9.0); NEUTROPHILS # (AUTO) 3.5 K/uL (1.8-7.7); NEUTROPHILS % (AUTO) 68.8 % (40.0-70.0); PLATELET COUNT (AUTO) 323 K/uL (150-450); RED BLOOD CELL COUNT(AUTO) 4.15 MIL/uL (4.00-5.20); RED CELL DISTRIBUTION WIDTH 14.7 % (11.5-14.5)
[2023-02-10 07:05] LABS: ANION GAP 7 mmol/L (8-16); CARBON DIOXIDE 28 mmol/L (22-29); CHLORIDE 100 mmol/L (98-107); GLOMERULAR FILTR. RATE CALC > 60 mL/min (>60); GLUCOSE,RANDOM 94 mg/dL (70-110); POTASSIUM 3.6 mmol/L (3.5-5.1); SODIUM SERUM 135 mmol/L (136-145); UREA NITROGEN, BLOOD 11 mg/dL (7-18)
[2023-02-10 07:11] LABS: ALANINE AMINOTRANSFERASE 39 U/L (12-78); ALBUMIN 3.7 g/dL (3.4-5.0); ALKALINE PHOSPHATASE 102 U/L (46-116); ASPARTATE AMINOTRANSFERASE 35 U/L (15-37); BILIRUBIN,TOTAL 0.2 mg/dL (0.1-1.0); TOTAL PROTEIN, SERUM 8.1 g/dL (6.4-8.2)
[2023-02-10] MEDS ORDERED: ACETAMINOPHEN 325 MG TABLET PO ONE (07:15)
[2023-02-10 07:26] LABS: ALCOHOL, BLOOD (SERUM) < 3 mg/dL (0-10)
[2023-02-10 08:08] VITALS: BP 136/89; PULSE 92; RESP 18
[2023-02-10 08:34] LABS: COVID AG,FIA SOURCE NASAL SWAB
[2023-02-10 09:04] LABS: SARS-COV2 (COVID) ANTIGEN,FIA Negative (Negative)
[2023-02-10 09:15] LABS: APPEARANCE,URINE CLEAR (CLEAR); BILIRUBIN,URINE NEGATIVE (NEGATIVE); COLOR,URINE LIGHT YELLOW (YELLOW); GLUCOSE, URINE (UA) NEGATIVE (NEGATIVE); KETONES,URINE NEGATIVE (NEGATIVE); LEUKOCYTE ESTERASE ,URINE NEGATIVE (NEGATIVE); NITRATE,URINE NEGATIVE (NEGATIVE); OCCULT BLOOD,URINE MODERATE (NEGATIVE); PH,URINE 5.5 (5.0-8.0); PROTEIN,URINE NEGATIVE (NEGATIVE); SPECIFIC GRAVITIY, URINE 1.025 (1.003-1.030); UROBILINOGEN,URINE <=1.0 mg/dL (<=1.0)
[2023-02-10] MEDS ORDERED: QUEtiapine FUMARATE 100 MG TABLET PO ONE (09:15)
[2023-02-10] MEDS ORDERED: LORazepam 1 MG TABLET PO ONE (09:15)
[2023-02-10 09:22] LABS: AMPHET/METH SCREEN,URINE NEGATIVE (NEGATIVE); BARBITURATE SCREEN, URINE POSITIVE (NEGATIVE); BENZODIAZEPINES SCREEN,URINE NEGATIVE (NEGATIVE); CANNABINOID SCREEN,URINE NEGATIVE (NEGATIVE); COCAINE SCREEN,URINE NEGATIVE (NEGATIVE); METHADONE SCREEN, URINE NEGATIVE (NEGATIVE); OPIATE SCREEN,URINE NEGATIVE (NEGATIVE); PHENCYCLIDINE SCREEN,URINE NEGATIVE (NEGATIVE)
[2023-02-10 09:25] LABS: ALCOHOL, URINE DRUG SCREEN NEGATIVE (NEGATIVE); PH,URINE DRUG SCREEN 5.5 (5.0-8.0)
[2023-02-10 09:31] LABS: RBC,URINE 0-2 /HPF (0-2); WBC,URINE 0-2 /HPF (0-5)
[2023-02-10 09:32] LABS: BACTERIA,URINE None Seen /HPF (None Seen); SQUAMOUS EPITHELIAL CELL,UR Few /LPF (None Seen)
== END 2023-02-10 12:16 | disposition home or self-care (01) ==
LOC: EMS 04:33
DX: R45.1 Restlessness and agitation (principal); F41.9 Anxiety disorder, unspecified; F31.9 Bipolar disorder, unspecified; E78.00 Pure hypercholesterolemia, unspecified; F20.9 Schizophrenia, unspecified; F17.210 Nicotine dependence, cigarettes, uncomplicated; F12.90 Cannabis use, unspecified, uncomplicated; F15.90 Other stimulant use, unspecified, uncomplicated; Z88.8 Allergy status to other drugs, medicaments and biological substances; Z91.148 Patient's other noncompliance with medication regimen for other reason; Z20.822 Contact with and (suspected) exposure to COVID-19
CPT/HCPCS: 99283; 87426; 80053; 81001; 84703; 85025; 36415; 80307; G0480

== ENCOUNTER 2023-02-16 16:12 | Emergency (ER) | payer MEDICAID ==
[~2023-02-16] VITALS: Ht 162.6 cm; Wt 54.5 kg
[2023-02-16 16:33] VITALS: TEMP 98
[2023-02-16] MEDS ORDERED: QUEtiapine FUMARATE 100 MG TABLET PO ONE (17:15)
[2023-02-16 18:43] LABS: BASOPHILS % (AUTO) 0.8 % (0.0-2.0); EOSINOPHILS % (AUTO) 2.8 % (1.0-6.0); HEMATOCRIT 32.5 % (36-46); HEMOGLOBIN 10.8 g/dL (12.0-16.0); LYMPHOCYTES # (AUTO) 1.6 K/uL (1.0-4.8); LYMPHOCYTES % (AUTO) 24.3 % (22.0-44.0); MEAN CORPUSCULAR HEMOGLOBIN 29.7 pg (26.0-34.0); MEAN CORPUSCULAR HGB CONC 33.4 G/dL (31.0-37.0); MEAN CORPUSCULAR VOLUME 89 fL (80-100); MONOCYTES # (AUTO) 0.5 K/uL (0.1-1.0); MONOCYTES % (AUTO) 7.9 % (2.0-9.0); NEUTROPHILS # (AUTO) 4.3 K/uL (1.8-7.7); NEUTROPHILS % (AUTO) 64.2 % (40.0-70.0); PLATELET COUNT (AUTO) 465 K/uL (150-450); RED BLOOD CELL COUNT(AUTO) 3.64 MIL/uL (4.00-5.20); RED CELL DISTRIBUTION WIDTH 14.5 % (11.5-14.5); WHITE BLOOD COUNT (AUTO) 6.7 K/uL (4.5-11.0)
[2023-02-16 18:50] LABS: ANION GAP 5 mmol/L (8-16); CALCIUM, TOTAL 8.5 mg/dL (8.8-10.5); CARBON DIOXIDE 28 mmol/L (22-29); CHLORIDE 100 mmol/L (98-107); CREATININE 0.49 mg/dL (0.60-1.30); GLOMERULAR FILTR. RATE CALC > 60 mL/min (>60); GLUCOSE,RANDOM 105 mg/dL (70-110); POTASSIUM 4.2 mmol/L (3.5-5.1); SODIUM SERUM 133 mmol/L (136-145); UREA NITROGEN, BLOOD 10 mg/dL (7-18)
[2023-02-16 18:56] LABS: ALANINE AMINOTRANSFERASE 52 U/L (12-78); ALBUMIN 3.1 g/dL (3.4-5.0); ALKALINE PHOSPHATASE 157 U/L (46-116); ASPARTATE AMINOTRANSFERASE 37 U/L (15-37); BILIRUBIN,TOTAL 0.1 mg/dL (0.1-1.0); TOTAL PROTEIN, SERUM 6.9 g/dL (6.4-8.2)
[2023-02-16 20:51] VITALS: BP 129/84; PULSE 88; RESP 18
== END 2023-02-16 21:20 | disposition home or self-care (01) ==
LOC: EMS 16:13
DX: S82.55XA Nondisplaced fracture of medial malleolus of left tibia, initial encounter for closed fracture (principal); F41.9 Anxiety disorder, unspecified; F31.9 Bipolar disorder, unspecified; E78.00 Pure hypercholesterolemia, unspecified; F20.9 Schizophrenia, unspecified; F17.210 Nicotine dependence, cigarettes, uncomplicated; F12.90 Cannabis use, unspecified, uncomplicated; F15.90 Other stimulant use, unspecified, uncomplicated; Z88.8 Allergy status to other drugs, medicaments and biological substances; X58.XXXA Exposure to other specified factors, initial encounter; Y93.89 Activity, other specified; Y92.89 Other specified places as the place of occurrence of the external cause; Y99.8 Other external cause status
CPT/HCPCS: 70450; 73503; 80053; 84702; 85025; 99284

== ENCOUNTER 2023-12-09 21:38 | Emergency (ER) | payer MEDICAID ==
[~2023-12-09] VITALS: Ht 165.1 cm; Wt 54.5 kg
[2023-12-09 21:45] VITALS: BP 123/47; PULSE 100; RESP 18; TEMP 98; O2SAT 100
[2023-12-09] MEDS ORDERED: QUEtiapine FUMARATE 100 MG TABLET PO ONE (22:15)
[2023-12-09] MEDS ORDERED: BUSP10TA23 PO (22:16)
[2023-12-09] MEDS ORDERED: QUET300T5 PO (22:16)
[2023-12-09 22:22] LABS: COVID AG,FIA SOURCE NASAL SWAB
[2023-12-09 22:27] LABS: BASOPHILS % (AUTO) 0.6 % (0.0-2.0); EOSINOPHILS % (AUTO) 1.5 % (1.0-6.0); HEMATOCRIT 37.1 % (36-46); HEMOGLOBIN 12.2 g/dL (12.0-16.0); LYMPHOCYTES % (AUTO) 35.9 % (22.0-44.0); MEAN CORPUSCULAR HGB CONC 32.9 G/dL (31.0-37.0); MEAN CORPUSCULAR VOLUME 88 fL (80-100); MONOCYTES # (AUTO) 0.5 K/uL (0.1-1.0); MONOCYTES % (AUTO) 9.3 % (2.0-9.0); NEUTROPHILS # (AUTO) 2.9 K/uL (1.8-7.7); NEUTROPHILS % (AUTO) 52.7 % (40.0-70.0); PLATELET COUNT (AUTO) 272 K/uL (150-450); RED CELL DISTRIBUTION WIDTH 14.6 % (11.5-14.5); WHITE BLOOD COUNT (AUTO) 5.4 K/uL (4.5-11.0)
[2023-12-09] MEDS: QUEtiapine FUMARATE 300 MG ER TABLET PO ONE (22:28)
[2023-12-09 22:34] LABS: ANION GAP 8 mmol/L (8-16); CALCIUM, TOTAL 8.8 mg/dL (8.8-10.5); CARBON DIOXIDE 29 mmol/L (22-29); CHLORIDE 104 mmol/L (98-107); CREATININE 0.85 mg/dL (0.60-1.30); GLOMERULAR FILTR. RATE CALC > 60 mL/min (>60); GLUCOSE,RANDOM 76 mg/dL (70-110); POTASSIUM 4.2 mmol/L (3.5-5.1); SODIUM SERUM 141 mmol/L (136-145); UREA NITROGEN, BLOOD 13 mg/dL (7-18)
[2023-12-09 22:39] LABS: ALCOHOL, BLOOD (SERUM) < 3 mg/dL (0-10)
[2023-12-09 22:44] LABS: SARS-COV2 (COVID) ANTIGEN,FIA Negative (Negative)
== END 2023-12-09 22:33 | disposition home or self-care (01) ==
LOC: EMS 21:38
DX: F20.9 Schizophrenia, unspecified (principal); Z76.0 Encounter for issue of repeat prescription; F17.210 Nicotine dependence, cigarettes, uncomplicated; F12.90 Cannabis use, unspecified, uncomplicated; F15.10 Other stimulant abuse, uncomplicated; Z88.8 Allergy status to other drugs, medicaments and biological substances; Z20.822 Contact with and (suspected) exposure to COVID-19
CPT/HCPCS: 99283; 87426; 80048; 85025; 36415; G0480

== ENCOUNTER 2024-04-18 12:27 | Emergency (ER) | payer MEDICAID, OTHER ==
[~2024-04-18] VITALS: Ht 157.5 cm; Wt 63.6 kg
[~2024-04-18 12:27] MED LIST changes: +QUET300T5 PO
[2024-04-18 12:29] VITALS: BP 116/75; PULSE 98; RESP 18; TEMP 98.8; O2SAT 99
[2024-04-18] MEDS: IBUPROFEN 600 MG TABLET PO ONE (14:55)
[2024-04-18 14:59] LABS: COVID AG,FIA SOURCE NASAL SWAB
[2024-04-18 15:02] LABS: BASOPHILS % (AUTO) 0.8 % (0.0-2.0); EOSINOPHILS % (AUTO) 3.9 % (1.0-6.0); HEMATOCRIT 40.2 % (36-46); HEMOGLOBIN 12.8 g/dL (12.0-16.0); LYMPHOCYTES # (AUTO) 1.4 K/uL (1.0-4.8); LYMPHOCYTES % (AUTO) 38.8 % (22.0-44.0); MEAN CORPUSCULAR HEMOGLOBIN 27.8 pg (26.0-34.0); MEAN CORPUSCULAR HGB CONC 31.7 G/dL (31.0-37.0); MEAN CORPUSCULAR VOLUME 88 fL (80-100); MONOCYTES # (AUTO) 0.3 K/uL (0.1-1.0); MONOCYTES % (AUTO) 8.8 % (2.0-9.0); NEUTROPHILS # (AUTO) 1.7 K/uL (1.8-7.7); NEUTROPHILS % (AUTO) 47.7 % (40.0-70.0); PLATELET COUNT (AUTO) 254 K/uL (150-450); RED BLOOD CELL COUNT(AUTO) 4.59 MIL/uL (4.00-5.20); RED CELL DISTRIBUTION WIDTH 15.8 % (11.5-14.5); WHITE BLOOD COUNT (AUTO) 3.6 K/uL (4.5-11.0)
[2024-04-18 15:14] LABS: ANION GAP 6 mmol/L (8-16); CALCIUM, TOTAL 8.4 mg/dL (8.8-10.5); CARBON DIOXIDE 29 mmol/L (22-29); CHLORIDE 105 mmol/L (98-107); CREATININE 0.66 mg/dL (0.60-1.30); GLOMERULAR FILTR. RATE CALC > 60 mL/min (>60); GLUCOSE,RANDOM 80 mg/dL (70-110); POTASSIUM 3.6 mmol/L (3.5-5.1); SODIUM SERUM 140 mmol/L (136-145); UREA NITROGEN, BLOOD 10 mg/dL (7-18)
[2024-04-18 15:19] LABS: ALCOHOL, BLOOD (SERUM) < 3 mg/dL (0-10)
[2024-04-18 15:40] LABS: SARS-COV2 (COVID) ANTIGEN,FIA Negative (Negative)
[2024-04-18] MEDS ORDERED: ACET-2247 PO (15:41)
[2024-04-18] MEDS: QUEtiapine FUMARATE 100 MG TABLET PO ONE (15:41)
[2024-04-18] MEDS ORDERED: IBUP-1492 PO (15:41)
[2024-04-18] MEDS: BusPIRone HCL 10 MG TABLET PO ONE (15:43)
== END 2024-04-18 16:40 | disposition home or self-care (01) ==
LOC: EMS 12:27
DX: M54.12 Radiculopathy, cervical region (principal); F12.90 Cannabis use, unspecified, uncomplicated; F31.9 Bipolar disorder, unspecified; F41.9 Anxiety disorder, unspecified; Z79.899 Other long term (current) drug therapy; Z20.822 Contact with and (suspected) exposure to COVID-19
CPT/HCPCS: 99284; 87426; 80048; 84703; 85025; 36415; G0480

== ENCOUNTER 2024-05-28 01:48 | Emergency (ER) | payer MEDICAID, OTHER ==
[~2024-05-28] VITALS: Ht 165.1 cm; Wt 54.5 kg
[~2024-05-28 01:48] MED LIST changes: +ACET-2247 PO; +IBUP-1492 PO
[2024-05-28 01:53] VITALS: BP 123/81; PULSE 96; RESP 20; TEMP 98.5; O2SAT 100
[2024-05-28] MEDS: LORazepam 1 MG TABLET PO ONE (02:51)
[2024-05-28] MEDS: BusPIRone HCL 10 MG TABLET PO ONE (03:04)
[2024-05-28] MEDS: QUEtiapine FUMARATE 300 MG ER TABLET PO ONE (03:05)
== END 2024-05-28 03:17 | disposition home or self-care (01) ==
LOC: EMS 01:50
DX: F41.9 Anxiety disorder, unspecified (principal); F31.9 Bipolar disorder, unspecified; Z76.0 Encounter for issue of repeat prescription; F12.90 Cannabis use, unspecified, uncomplicated; F17.210 Nicotine dependence, cigarettes, uncomplicated; Z79.899 Other long term (current) drug therapy
CPT/HCPCS: 99284; Z7502; Z7610

== ENCOUNTER 2024-06-26 22:11 | Emergency (ER) | payer OTHER ==
[~2024-06-26] VITALS: Ht 165.1 cm; Wt 54.5 kg
[2024-06-26 23:19] VITALS: BP 119/91; PULSE 94; RESP 18; TEMP 97.7; O2SAT 96
[2024-06-26 23:44] LABS: BASOPHILS % (AUTO) 0.3 % (0.0-2.0); EOSINOPHILS % (AUTO) 1.9 % (1.0-6.0); HEMATOCRIT 38.4 % (36-46); HEMOGLOBIN 12.5 g/dL (12.0-16.0); LYMPHOCYTES # (AUTO) 1.6 K/uL (1.0-4.8); LYMPHOCYTES % (AUTO) 27.6 % (22.0-44.0); MEAN CORPUSCULAR HEMOGLOBIN 28.4 pg (26.0-34.0); MEAN CORPUSCULAR HGB CONC 32.6 G/dL (31.0-37.0); MEAN CORPUSCULAR VOLUME 87 fL (80-100); MONOCYTES # (AUTO) 0.5 K/uL (0.1-1.0); NEUTROPHILS # (AUTO) 3.6 K/uL (1.8-7.7); NEUTROPHILS % (AUTO) 62.2 % (40.0-70.0); PLATELET COUNT (AUTO) 300 K/uL (150-450); RED BLOOD CELL COUNT(AUTO) 4.41 MIL/uL (4.00-5.20); RED CELL DISTRIBUTION WIDTH 15.2 % (11.5-14.5); WHITE BLOOD COUNT (AUTO) 5.8 K/uL (4.5-11.0)
[2024-06-26 23:53] LABS: ANION GAP 5 mmol/L (8-16); CALCIUM, TOTAL 8.6 mg/dL (8.8-10.5); CARBON DIOXIDE 30 mmol/L (22-29); CHLORIDE 105 mmol/L (98-107); CREATININE 0.67 mg/dL (0.60-1.30); GLOMERULAR FILTR. RATE CALC > 60 mL/min (>60); GLUCOSE,RANDOM 74 mg/dL (70-110); POTASSIUM 3.4 mmol/L (3.5-5.1); SODIUM SERUM 140 mmol/L (136-145); UREA NITROGEN, BLOOD 12 mg/dL (7-18)
[2024-06-26 23:56] LABS: ALCOHOL, BLOOD (SERUM) < 3 mg/dL (0-10)
[2024-06-27 00:09] LABS: COVID AG,FIA SOURCE NASAL SWAB
[2024-06-27 00:31] LABS: SARS-COV2 (COVID) ANTIGEN,FIA Negative (Negative)
[2024-06-27] MEDS ORDERED: QUET100T PO (03:13)
[2024-06-27] MEDS ORDERED: BUSP10TA23 PO (03:13)
[2024-06-27] MEDS: BusPIRone HCL 10 MG TABLET PO ONE (03:27)
[2024-06-27] MEDS: QUEtiapine FUMARATE 100 MG TABLET PO ONE (03:27)
[2024-06-27] MEDS: LORazepam 2 MG TABLET PO ONE (03:27)
== END 2024-06-27 08:27 | disposition home or self-care (01) ==
LOC: EMS 22:13
DX: F32.9 Major depressive disorder, single episode, unspecified (principal); Z76.0 Encounter for issue of repeat prescription; F41.9 Anxiety disorder, unspecified; Z88.8 Allergy status to other drugs, medicaments and biological substances; Z79.899 Other long term (current) drug therapy; Z20.822 Contact with and (suspected) exposure to COVID-19
CPT/HCPCS: 99284; 87426; 80048; 85025; 36415; G0480

== ENCOUNTER 2024-08-06 19:42 | Emergency (ER) | payer OTHER ==
[~2024-08-06] VITALS: Ht 165.1 cm; Wt 54.0 kg
[~2024-08-06 19:42] MED LIST changes: +QUET100T PO
[2024-08-06 19:52] VITALS: BP 124/79; PULSE 91; RESP 20; TEMP 98.2; O2SAT 98
== END 2024-08-06 20:14 | disposition left against medical advice (07) ==
LOC: EMS 19:42
DX: Z76.0 Encounter for issue of repeat prescription (principal); Z53.21 Procedure and treatment not carried out due to patient leaving prior to being seen by health care provider

== ENCOUNTER 2024-10-06 03:43 | Emergency (ER) | payer OTHER ==
[~2024-10-06] VITALS: Ht 165.1 cm; Wt 54.5 kg
[2024-10-06 04:05] VITALS: BP 100/69; PULSE 110; RESP 18; TEMP 98.6; O2SAT 98
[2024-10-06] MEDS ORDERED: QUET100T PO (05:20)
[2024-10-06] MEDS ORDERED: BUSP10TA23 PO (05:20)
== END 2024-10-06 05:23 | disposition still patient (30) ==
LOC: EMS 03:46
DX: F25.9 Schizoaffective disorder, unspecified (principal); Z76.0 Encounter for issue of repeat prescription; F31.9 Bipolar disorder, unspecified; F41.9 Anxiety disorder, unspecified; F12.90 Cannabis use, unspecified, uncomplicated; F15.90 Other stimulant use, unspecified, uncomplicated; F14.90 Cocaine use, unspecified, uncomplicated; Z79.899 Other long term (current) drug therapy; Z88.5 Allergy status to narcotic agent
CPT/HCPCS: 99281; Z7502